=== PATIENT | female | born 1990 | race Caucasian/White ===

== ENCOUNTER 2021-05-19 08:04 | Emergency (ER) | payer OTHER ==
[2021-05-19 08:19] VITALS: BP 128/81
--- NOTE | 2021-05-19 08:48 | ED Physician Documentation ---
PD HPI BACK PAIN - Stated complaint Stated Complaint: LT LEG/BACK PX - Chief complaint Chief Complaint: Back Pain - History obtained from History obtained from: Patient - Additional information Additional information: 4 days atraumatic left low back pain radiating to left leg. Worse with movement. Given lidocaine patch and prednisone by PCM without relief. Sitting hurts. Seen by PT. Never had radiating back pain before. No weakness, saddle anesthesia, or fevers or incontinence. Review of Systems Constitutional: reports: Reviewed and negative Eyes: reports: Reviewed and negative Ears: reports: Reviewed and negative Nose: reports: Reviewed and negative Throat: reports: Reviewed and negative PD PAST MEDICAL HISTORY - Past Medical History Past Medical History: Yes - Present Medications Home Medications: Ambulatory Orders Medication Instructions Recorded Confirmed Cyclobenzaprine [Flexeril] 10 mg TID PRN 05/19/21 05/19/21 Lidocaine [Pain Relief] 1 each TP DAILY 05/19/21 05/19/21 Meloxicam [Mobic] 7.5 mg PO BID PRN #20 tablet 05/19/21 Oxycodone HCl/Acetaminophen 1 - 2 each PO Q6H PRN #20 tablet 05/19/21 [Percocet 5-325 mg Tablet] predniSONE [Deltasone] 40 mg PO DAILY 05/19/21 05/19/21 - Allergies Allergies/Adverse Reactions: Allergies Allergy/AdvReac Type Severity Reaction Status Date / Time ibuprofen Allergy Rash Verified 05/19/21 08:19 - Social History Does the pt smoke?: Yes Smoking Status: Current every day smoker PD ED PE NORMAL - Vitals Vital signs reviewed: Yes - General General: Alert and oriented X 3, Other (She appears uncomfortable and winces with any motion) - Back Back: No spinal TTP, Other (Tender near the left sciatic notch) - Extremities Extremities: Other (The patient has equal and normal Achilles and patellar reflexes bilaterally. Normal sensation in all areas of the legs. Patient denies saddle anesthesia. Normal strength in flexion-extension at the ankles, knees, and flexion of the hips.) Results - Vitals Vitals: Vital Signs - 24 hr 05/19/21 08:06 Temperature 36.7 C Heart Rate 79 Respiratory 16 Rate Blood Pressure 128/81 H O2 Saturation 96 Oxygen O2 Source Room air Procedures - General procedure General procedure: Trigger point injection was done in the superior left buttock in the area of maximal tenderness with a mixture of 3 mL of 0.5% bupivacaine and 1 mL containing 40 mg of triamcinolone. PD MEDICAL DECISION MAKING - ED course ED course: This patient has seemingly uncomplicated musculoskeletal back pain. The patient has no "red flags." Specifically denies IV drug use, fevers, incontinence, saddle anesthesia. Spinal epidural abscess was considered, given that the patient has no fever, is not diabetic, has no spinal tenderness, does not use IV drugs, and has no bilateral neurologic symptoms, the diagnosis of spinal epidural abscess is considered exceedingly unlikely. I am prescribing a short course of short-acting opioid pain medication for this patient. I have reviewed the patients [employer] and no concerning findings were noted. I have discussed that the opioids are for short term therapy only, and will not be refilled from the ED. Departure - Departure Disposition: Home, Self Care Clinical Impression: Sciatica Condition: Good Record reviewed to determine appropriate education?: Yes Instructions: ED Sciatica Prescriptions: Meloxicam [Mobic] 7.5 mg PO BID PRN #20 tablet PRN Reason: Pain Oxycodone HCl/Acetaminophen [Percocet 5-325 mg Tablet] 1 - 2 each PO Q6H PRN #20 tablet PRN Reason: pain Comments: Prescription sent electronically [place] [facility] [place] Keep your a pre-existing appointment with your PCM today this afternoon. I am prescribing a short course of narcotic pain medication for you. These are potentially dangerous and addictive medications that should be used carefully. These medications may constipate you. Take an dudp-yti-lfudpjy stool softener (docusate) twice daily with plenty of water while taking these medications. If you go 24 hours without a bowel movement, take [id number] miralax, per package instructions. Do not drink or drive while taking these medications. If you received narcotic or sedating medications while in the emergency department, do not drive for 24 hours. Store this medication in a safe, secure place and out of reach of children. It is a violation of federal law to give or sell this medication to another person or to use in a manner other than prescribed. The ED will not refill narcotic prescriptions, including prescriptions lost or stolen. To dispose of unwanted medications: 1. [facility] at [address] [facility] [facility] in [place] has a medication drop box. They accept prescription medications (in pill form) Monday through Monday 9:00 a.m. to 5:00 p.m. 2. The [facility] [employer] [facility] accepts prescription medications (in pill form only) for disposal year round. Call for more information. 3. Contact the [facility] for the next [facility] sponsored prescription drug collection event. , [phone], or [phone]; Note that many narcotic pain relievers also contain Tylenol/acetaminophen. Please ensure that your total dose of acetaminophen from all sources does not exceed 3 g (3000 mg) per day. Forms: Activity restrictions
[2021-05-19] MEDS ORDERED: HYDROmorphone 1 MG/ML CARPUJECT IM STA (08:50)
[2021-05-19] MEDS ORDERED: KETOROLAC 60 MG/2 ML VIAL IM STA (08:50)
[2021-05-19] MEDS ORDERED: BUPIVACAINE 0.5% PF 10 ML VIAL SUBQ STA (09:20)
[2021-05-19] MEDS ORDERED: TRIAMCINOLONE 40 MG/ML VIAL IM STA (09:20)
[2021-05-19] MEDS ORDERED: ONDANSETRON ODT 4 MG TABLET TL STA (09:30)
== END 2021-05-19 10:27 | disposition home or self-care (01) ==
LOC: ED 08:04
DX: M54.32 Sciatica, left side (principal); F17.200 Nicotine dependence, unspecified, uncomplicated
CPT/HCPCS: 20552; 96372; 99283; J1170; Q0162

== ENCOUNTER 2021-05-31 08:17 | Outpatient (CLI) | payer OTHER ==
--- NOTE | 2021-05-31 13:38 | MRI Report ---
PROCEDURE: Lumbar Spine W/O INDICATIONS: LOW BACK PAIN TECHNIQUE: Noncontrast sagittal T1 spin echo and T2 fast echo, sagittal STIR, axial T1 and T2 fast spin echo thr ough the lumbar spine. In cases with scoliosis, additional coronal T2 fast spin echo may be performe d. COMPARISON: None. FINDINGS: Image quality: Excellent. Alignment and Curvature: There is normal bony alignment. Bone Marrow: Mild degenerative endplate changes noted at L2-3 and L5-S1 Spinal Cord: Conus medullaris terminates at the L1 level. Visualized cord demonstrates normal signa l and size. Paraspinous Soft Tissues: No paravertebral masses. T12-L1: Normal in appearance. L1-L2: Normal in appearance. L2-L3: Mild disc space narrowing and small Schmorl's node involving the inferior endplate. No cent ral or foraminal stenosis. L3-L4: Normal in appearance. L4-L5: Normal in appearance. L5-S1: Disc space narrowing and asymmetric left disc bulge effaces the left lateral recess displaci ng the descending S1 nerve root. No central stenosis present. Moderate left and right foraminal steno sis present. IMPRESSION: 1. Degenerative disc disease results in L5-S1 left lateral recess effacement and moderate bilateral f oraminal stenosis Reviewed by: Randy Camilo MD on 05/31/2021 12:37 PM [facility] Approved by: Randy Camilo MD on 05/31/2021 12:37 PM [facility] Station ID: [id number]
== END 2021-05-31 08:18 | disposition home or self-care (01) ==
LOC: DI 08:17
PROVIDERS: ATTEND Physician Assistant
DX: M51.37 Other intervertebral disc degeneration, lumbosacral region (principal); M48.07 Spinal stenosis, lumbosacral region; M51.46 Schmorl's nodes, lumbar region

== ENCOUNTER 2021-08-25 08:02 | Outpatient (CLI) | payer OTHER ==
--- NOTE | 2021-08-25 15:08 | MRI Report ---
PROCEDURE: Brain W/O INDICATIONS: ALTERED MENTAL STATUS TECHNIQUE: Noncontrast axial T1 spin echo, axial T2 fast spin echo, sagittal and axial FLAIR, coronal T2 fast sp in echo, axial gradient echo, axial diffusion and ADC through the brain. COMPARISON: None. FINDINGS: Image quality: Excellent. CSF Spaces: Basal cisterns are patent. No extra-axial fluid collections. Ventricles are normal in size and shape. Brain: Several abnormal foci of T2-weighted hyperintensity can be seen within the white matter, incl uding within the juxtacortical white matter of both sides, as on series 801 image 15. There is mild i nvolvement of the corpus callosum. No intracranial masses or hemorrhage. Keenan/white matter interface is normal. Brainstem appears norm al. Diffusion-weighted images demonstrate no acute ischemic insult. No chronic ischemic insults. N ormal intravascular flow voids are present. Skull and face: Calvarium has normal marrow signal. Orbits appear normal. Sinuses: Sinuses and mastoids are clear. IMPRESSION: Scattered T2 hyperintense white matter lesions are seen, although nonspecific, please consider early multiple sclerosis in a female patient of this age. Reviewed by: Joshua Walsh MD on 08/25/2021 2:06 PM [facility] Approved by: Joshua Walsh MD on 08/25/2021 2:06 PM [facility] Station ID: [id number]
== END 2021-08-25 08:03 | disposition home or self-care (01) ==
LOC: DI 08:02
PROVIDERS: ATTEND Physician Assistant
DX: R41.82 Altered mental status, unspecified (principal); R90.82 White matter disease, unspecified

== ENCOUNTER 2021-11-02 10:31 | Outpatient (CLI) | payer OTHER ==
[2021-11-02 10:46] LABS: BASOPHILS % (AUTO) 0.5 %; EOSINOPHILS % (AUTO) 0.4 %; HGB - HEMOGLOBIN 14.3 g/dL (12.0-16.0); LYMPHOCYTES # (AUTO) 1.8 10^3/uL (1.5-3.5); LYMPHOCYTES % (AUTO) 22.4 %; MEAN CORPUSCULAR HEMOGLOBIN 31.8 pg (27.0-31.0); MEAN CORPUSCULAR HGB CONC 33.3 g/dL (32.0-36.0); MEAN CORPUSCULAR VOLUME 95.8 fL (81.0-99.0); MEAN PLATELET VOLUME 10.8 fL (7.9-10.8); MONOCYTES # (AUTO) 0.5 10^3/uL (0.0-1.0); MONOCYTES % (AUTO) 6.7 %; NEUTROPHILS # (AUTO) 5.6 10^3/uL (1.5-6.6); NEUTROPHILS % (AUTO) 69.7 %; PLT - PLATELET COUNT 304 10^3/uL (130-450); RED BLOOD COUNT 4.49 10^6/uL (4.20-5.40); RED CELL DISTRIBUTION WIDTH 12.3 % (12.0-15.0)
[2021-11-02 10:56] LABS: CALCIUM 9.3 mg/dL (8.5-10.3); CREATININE 0.7 mg/dL (0.4-1.0); POTASSIUM 3.6 mmol/L (3.5-5.0)
== END 2021-11-02 10:32 | disposition home or self-care (01) ==
LOC: LAB 10:31
PROVIDERS: ATTEND Internal Medicine Cardiovascular Disease
DX: R55 Syncope and collapse (principal)
CPT/HCPCS: 36415; 80048; 85025